=== PATIENT | male | born 1950 | race Caucasian/White ===

== ENCOUNTER 2017-03-17 10:00 | Day surgery (SDC) | payer OTHER ==
[~2017-03-17 10:00] MED LIST: Dexamethasone 4 MG/ML SDV ONE; EPINEPHrine 1 MG/ML SDV ONE; Glycopyrrolate 0.2 MG/ML 5 ML MDV ONE; Neostigmine Methylsulfate 1 MG/ML 5 ML Syringe ONE; Ondansetron 4 MG/2 ML SDV ONE; Povidone-Iodine 10% Soln 118.25 ML Bottle ONE; Propofol 200 MG/20 ML SDV ONE; Rocuronium 50 MG/5 ML Vial ONE; Succinylcholine 200 MG/10 ML MDV ONE
[2017-03-17] MEDS ORDERED: Lactated Ringers 1,000 ML IV SCH (10:30)
[2017-03-17] MEDS ORDERED: Propofol 200 MG/20 ML SDV ONE (10:43)
[2017-03-17] MEDS ORDERED: Bupivacaine 0.5%/EPINEPHrine 1:200,000 50 ML MDV ONE (11:16)
[2017-03-17] MEDS ORDERED: EPINEPHrine 1 MG/ML SDV ONE ×2 (11:16→11:19)
[2017-03-17] MEDS ORDERED: Povidone-Iodine 10% Soln 118.25 ML Bottle ONE (11:16)
[2017-03-17] MEDS ORDERED: Ropivacaine 0.5% 5 MG/ML 30 ML SDV ONE (11:16)
[2017-03-17] MEDS ORDERED: Bupivacaine 0.5% 30 ML SDV ONE (11:28)
[2017-03-17] MEDS ORDERED: ceFAZolin 2 GM in Premix Bag 1 BAG IV ONE (11:30)
[2017-03-17] MEDS ORDERED: ePHEDrine 50 MG/ML SDV ONE (12:50)
[2017-03-17] MEDS ORDERED: Acetaminophen/oxyCODONE 325-5 MG Tab PO PRN (15:15)
--- NOTE | 2017-03-17 18:23 | OR ---
DATE OF PROCEDURE: 03/17/2017 PREOPERATIVE DIAGNOSES: 1. Right shoulder rotator cuff tear. 2. Right shoulder impingement. 3. Right shoulder bursitis. POSTOPERATIVE DIAGNOSES: 1. Right shoulder rotator cuff tear. 2. Right shoulder impingement. 3. Right shoulder bursitis. PROCEDURES: 1. Right shoulder arthroscopy with limited debridement of synovium biceps tendon and glenoid labrum. 2. Subacromial decompression. 3. Mini open rotator cuff repair. SUPERVISOR BOTTLE MACHINES: MAXWELL Zuñiga Physician assistant professor of biochemistry, Jessica Paez NP, played an essential role in assisting in this case, helping to position the patient, retract structures as needed, as well as suturing and cutting sutures as indicated. Her presence improved patient's safety and decreased operative time. ANESTHESIA: Regional anesthesia plus general endotracheal intubation. FLUID: Lactated Ringer solution. ESTIMATED BLOOD LOSS: 25 mL. COMPLICATIONS: None. SPECIMEN: None. DISCHARGE DISPOSITION: Stable to PACU. INDICATIONS: The patient was seen in clinic. He had failed over a year of nonoperative treatment. Preoperative imaging confirmed the above-mentioned diagnosis. Risks and benefits of the procedure were explained to the patient. Informed consent was obtained. DETAILS OF PROCEDURE: The patient was seen preoperatively by myself and the Anesthesia staff in the preoperative holding area where the operative site was marked. He was brought to the operative suite by Anesthesia staff where a regional interscalene block was performed plus general endotracheal intubation. The patient was then positioned in a beach chair position. All extremities were found to be well padded. The right upper extremity was then prepped and draped in a sterile manner. Time-out was called identifying the correct patient, correct procedure, the correct site, and antibiotics had begun within appropriate period of time. The posterior portal was then made and I entered with the arthroscope into the joint. I can see that there was partial labral tears as well as some synovitis and partial tearing of the biceps tendon. I then used an 18-gauge spinal needle to joseline the spot for entry anteriorly and then made my anterior portal and then entered with a shaver and then debrided partial synovectomy, partial labral tear, and partial biceps tear. I then removed my instruments and then went to the subacromial space with a trocar, then the scope, and then made a lateral portal and entered with a trocar and then the shaver and then shaved considerable bursa for partial bursectomy and then identified the acromion and then shaved around the acromion and then used an ablation unit to better delineate the acromion. I then used a mark to remove the hook of the acromion. I then was able to visualize the rotator cuff tear, which was anterolateral at the supraspinatus insertion. I then removed all my instruments and then re-prepped and then made an incision of the anterior border of the acromion distally just under 5 cm to protect the axillary nerve and then split the deltoid at the intersection of the middle and anterior raphae and then used two Gelpi's for retraction. I then removed some bursa and then was able to grab the supraspinatus tendon with a Narayan. I then used a drill to drill some areas for bone bleeding and then drilled two areas from my JuggerKnot anchors middle row JuggerKnot anchors. I then used two suture strands from each anchor to go up from inferior to superior through the supraspinatus tendon through the anterior-posterior portions of it. I then tied those and then crossed them and then placed my posterior row of anchors in a emanuel-cross manner, tensioned those sutures through the anchors and then buried my anchors and then cut down. This provided good stability of our tear. I then copiously irrigated with Betadine-infused irrigation. We closed the deep fascia with #1 Stratafix, followed by 3-0 Stratafix, followed by nylon and closed the other portals with nylon. We then applied Betadine-soaked Adaptic and a sterile dressing and then placed the patient in a sling. The patient was then allowed to awaken from general anesthesia and taken to the PACU in stable condition. Cecilio Reyes DO /[id number]
== END 2017-03-17 16:15 | disposition home or self-care (01) ==
LOC: JP.SDS 10:00
PROVIDERS: ATTEND Orthopaedic Surgery
DX: M75.101 Unspecified rotator cuff tear or rupture of right shoulder, not specified as traumatic (principal); M75.41 Impingement syndrome of right shoulder; M75.51 Bursitis of right shoulder; M65.811 Other synovitis and tenosynovitis, right shoulder; Z88.8 Allergy status to other drugs, medicaments and biological substances; J30.1 Allergic rhinitis due to pollen; Z79.82 Long term (current) use of aspirin; Z79.899 Other long term (current) drug therapy; F17.210 Nicotine dependence, cigarettes, uncomplicated
CPT/HCPCS: 23410; 29822; 29826; A9270; J0171; J0330; J0690; J1100; J2405; J2704; J2710; J3010; J7120; 23412; J2795

== ENCOUNTER 2018-10-07 07:42 | Day surgery (SDC) | payer OTHER ==
[~2018-10-07 07:42] MED LIST changes: -Dexamethasone 4 MG/ML SDV ONE; -EPINEPHrine 1 MG/ML SDV ONE; -Glycopyrrolate 0.2 MG/ML 5 ML MDV ONE; +Midazolam 1 MG/ML 2 ML SDV ONE; -Neostigmine Methylsulfate 1 MG/ML 5 ML Syringe ONE; -Ondansetron 4 MG/2 ML SDV ONE; -Povidone-Iodine 10% Soln 118.25 ML Bottle ONE; -Rocuronium 50 MG/5 ML Vial ONE; -Succinylcholine 200 MG/10 ML MDV ONE; +fentaNYL 100 MCG/2 ML SDV ONE
[2018-10-07] MEDS ORDERED: Sodium Chloride 0.9% 1,000 ML IV SCH (08:15)
--- NOTE | 2018-10-07 14:46 | OR ---
DATE OF PROCEDURE: 10/07/2018 SURGEON: Rio Gracia MD PROCEDURE: Colonoscopy. FINDINGS: Normal colonoscopy. COMPLICATIONS: None. HISTORIC SITES SUPERVISOR: None. ANESTHESIA: MAC. PREOPERATIVE DIAGNOSIS: Screening colonoscopy. POSTOPERATIVE DIAGNOSIS: Screening colonoscopy. RISKS: Risks, benefits, alternatives, and limitations including, but not limited to infection, bleeding, and perforation were explained to the patient, who wished to proceed. PROCEDURE IN DETAIL: The patient was placed in left lateral decubitus position. Digital rectal exam was performed without abnormality. The scope was introduced and advanced atraumatically to the ileocecal valve. The scope was brought back through the ascending, transverse, descending colon, and retroflexed. No evidence of old or new blood. No masses. No polyps. No other abnormalities. No evidence of colitis. The patient tolerated the procedure well. Rio Gracia MD /[id number]
== END 2018-10-07 10:40 | disposition home or self-care (01) ==
LOC: JP.SDS 07:42
PROVIDERS: ATTEND Surgery
DX: Z12.11 Encounter for screening for malignant neoplasm of colon (principal); I10 Essential (primary) hypertension; E11.9 Type 2 diabetes mellitus without complications; E78.00 Pure hypercholesterolemia, unspecified; K21.9 Gastro-esophageal reflux disease without esophagitis; F17.200 Nicotine dependence, unspecified, uncomplicated; F43.10 Post-traumatic stress disorder, unspecified
CPT/HCPCS: 45378; J2250; J2704; J3010; J7030

== ENCOUNTER 2019-01-12 06:01 | Day surgery (SDC) | payer OTHER ==
[2019-01-12] MEDS ORDERED: ceFAZolin 2 GM in Premix Bag 1 BAG IV ONE (06:30)
[2019-01-12] MEDS ORDERED: Lactated Ringers 1,000 ML IV SCH (06:30)
[2019-01-12] MEDS ORDERED: Nozin Nasal Sanitizer NASBOTH ONE (06:30)
[2019-01-12] MEDS ORDERED: Bupivacaine 0.5% 50 ML MDV ONE (06:54)
[2019-01-12] MEDS ORDERED: ceFAZolin 2 GM in Sodium Chloride 0.9% 50 ML IV ONE (07:30)
[2019-01-12] MEDS ORDERED: fentaNYL 250 MCG/5 ML SDV ONE (07:36)
[2019-01-12] MEDS ORDERED: Propofol 200 MG/20 ML SDV ONE (07:36)
[2019-01-12] MEDS ORDERED: Ondansetron 4 MG/2 ML SDV ONE (07:36)
[2019-01-12] MEDS ORDERED: Dexamethasone 4 MG/ML SDV ONE (07:36)
[2019-01-12] MEDS ORDERED: Rocuronium 50 MG/5 ML Vial ONE (07:36)
[2019-01-12] MEDS ORDERED: Bupivacaine 0.5% 30 ML SDV ONE (07:39)
[2019-01-12] MEDS ORDERED: Midazolam 1 MG/ML 2 ML SDV ONE (08:11)
[2019-01-12] MEDS ORDERED: Acetaminophen/oxyCODONE 325-5 MG Tab PO ONE (10:19)
--- NOTE | 2019-01-19 17:14 | OR ---
DATE OF PROCEDURE: 01/12/2019 SURGEON: Onesimo Villeda MD PREOPERATIVE DIAGNOSIS: Impingement, left shoulder with rotator cuff tear. POSTOPERATIVE DIAGNOSES: 1. Impingement, left shoulder. 2. Small full-thickness rotator cuff tear. 3. 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 4. Severe capsulitis and bursitis, left shoulder. PROCEDURE: Arthroscopy of left shoulder with debridement of degenerative labrum, debridement of synovitis, capsulitis, glenohumeral joint, debridement of subacromial bursa, subacromial decompression with acromioplasty, and arthroscopic repair of infraspinatus full- thickness tear. ANESTHESIA: Interscalene block with sedation. INDICATIONS: Mr. Lainez is a very pleasant 68-year-old gentleman with a history of persistent shoulder pain which has failed conservative treatment. Examination and MRI are consistent with impingement, rotator cuff tendinopathy, and a small full-thickness cuff tear. He now presents for arthroscopic evaluation with decompression, acromioplasty, and repair of rotator cuff. Risks, benefits, and potential complications of procedure were discussed. DESCRIPTION OF PROCEDURE: After adequate anesthesia was obtained, the patient was placed in lateral decubitus position and secured with a beanbag positioner. The left shoulder and arm were then prepped and draped in a sterile fashion and 10 pounds of traction was placed in the shoulder traction unit. A standard posterior portal was established and the glenohumeral joint was inspected. This revealed evidence of significant inflammation throughout the lining of the joint with thickened capsule and synovium and fairly large fronds of hypertrophic synovitis. This was debrided with a combination of shaver and the radiofrequency ablation. Inspection of the joint showed chondromalacia at the anterior edge of the glenoid at the equator with some loose articular flaps, grade 3 chondromalacia. The labrum showed some mild degeneration, but was intact in this location. Showed more significant degenerative change superiorly with a rupture of the long head of the biceps tendon. The superior labrum and portion of the biceps stump were debrided with a shaver. The subscapularis showed significant tendinopathy with intrasubstance tear without full- thickness tear. No repair was attempted with this. Evaluation of the undersurface of the rotator cuff showed tendinopathy with evidence of a small full-thickness tear. The scope was then withdrawn and placed in the subacromial space. Subacromial space also showed significant inflammation with bursitis. The entire bursal surface of the supraspinous and infraspinatus tendon showed degeneration and fraying. Bursa was debrided with a combination of shaver and ablation wand for better visualization. Significant impingement noted against the coracoacromial ligament and undersurface of the acromion. This was cleared of soft tissue with the ablation wand and the coracoacromial ligament was released. A mark was then utilized to perform an acromioplasty removing approximately 4 mm from the undersurface. Shaver was used to very lightly debride the frayed portions of the tendon. A small full-thickness tear was noted approximately at the junction of the infraspinatus and supraspinous in the infraspinatus tendon. This was debrided with a shaver. The superior surface of the tuberosity at the footprint was lightly decorticated with the mark. A single Mitek Healix anchor was then placed. One limb of each of the suture pairs was passed through the tendon with the Mitek ExpresSew device. Sutures were then tied down in a simple single row repair. This provided very good fixation of the tear. The remainder of the cuff was visualized both from the posterior and lateral portals as well as rotating the arm through a range of motion. No other full-thickness tear was noted. As previously stated, the tendon did show significant tendinopathy throughout the majority of the substance. The scope was withdrawn. Shoulder was drained. Port sites were closed in a standard fashion. Steri-Strips were applied. Sterile dressing was then placed. The patient tolerated the procedure very well. There were no complications. He was taken from the operating room in stable condition. Onesimo Villeda MD /[id number]
== END 2019-01-12 11:30 | disposition home or self-care (01) ==
LOC: JP.SDS 06:01
PROVIDERS: ATTEND Specialist
DX: M75.122 Complete rotator cuff tear or rupture of left shoulder, not specified as traumatic (principal); M75.42 Impingement syndrome of left shoulder; M94.212 Chondromalacia, left shoulder; M75.02 Adhesive capsulitis of left shoulder; M75.52 Bursitis of left shoulder; S46.112A Strain of muscle, fascia and tendon of long head of biceps, left arm, initial encounter; M65.812 Other synovitis and tenosynovitis, left shoulder; I10 Essential (primary) hypertension; E78.5 Hyperlipidemia, unspecified; K21.9 Gastro-esophageal reflux disease without esophagitis; F17.210 Nicotine dependence, cigarettes, uncomplicated; F17.290 Nicotine dependence, other tobacco product, uncomplicated; G62.9 Polyneuropathy, unspecified; G89.29 Other chronic pain; M54.5 Low back pain; R73.03 Prediabetes; X58.XXXA Exposure to other specified factors, initial encounter; Z88.8 Allergy status to other drugs, medicaments and biological substances; Z79.899 Other long term (current) drug therapy
CPT/HCPCS: 29823; 29826; 29827; 36415; 80053; 85027; A9270; C1713; J0690; J2250; J2704; J3010; J3490; J7050; J7120; J1100; J2405

== ENCOUNTER 2021-12-31 06:34 | Day surgery (SDC) | payer OTHER ==
[~2021-12-31 06:34] MED LIST changes: +Acetaminophen 500 MG Tab PO ONE; +Dextrose 5%-Lactated Ringers 1,000 ML IV SCH; -Midazolam 1 MG/ML 2 ML SDV ONE; -Propofol 200 MG/20 ML SDV ONE; -fentaNYL 100 MCG/2 ML SDV ONE
[2021-12-31] MEDS ORDERED: Bupivacaine 0.5% 50 ML MDV ONE (06:43)
[2021-12-31] MEDS ORDERED: Lidocaine 1% with EPINEPHrine 1:100,000 50 ML MDV ONE (06:43)
[2021-12-31] MEDS ORDERED: Midazolam 1 MG/ML 2 ML SDV ONE (07:13)
[2021-12-31] MEDS ORDERED: fentaNYL 100 MCG/2 ML SDV ONE (07:13)
[2021-12-31] MEDS ORDERED: Propofol 200 MG/20 ML SDV ONE (07:13)
[2021-12-31] MEDS ORDERED: ceFAZolin 2 GM in Sodium Chloride 0.9% 50 ML IV ONE (07:15)
== END 2021-12-31 09:30 | disposition home or self-care (01) ==
LOC: JP.SDS 06:34
PROVIDERS: ATTEND Surgery
DX: C44.619 Basal cell carcinoma of skin of left upper limb, including shoulder (principal); J44.9 Chronic obstructive pulmonary disease, unspecified; F17.210 Nicotine dependence, cigarettes, uncomplicated; K21.9 Gastro-esophageal reflux disease without esophagitis
CPT/HCPCS: 11606; 12032; 88305; A9270; J0690; J2250; J2704; J3010; J3490; J7121